=== PATIENT | female | born 1980 | race American Indian/Alaskan Native ===

== ENCOUNTER 2016-12-31 06:59 | Emergency (ER) | payer BC ==
[2016-12-31] MEDS ORDERED: DELTASONE PO ONE (09:15)
[2016-12-31] MEDS ORDERED: ULTRAM PO ONE (09:15)
--- NOTE | 2016-12-31 09:15 | Emergency Department Report ---
HPI - General Chief Complaint: Upper Respiratory Infection Time Seen by Provider: 12/31/16 08:57 - HPI HPI: Patient here complaining of feeling lightheaded and having a sinus headache with sinus pressure. She said this been going on for a week but it's getting worse. She says she uses [id number] sinus meds without any relief. She got a blood pressure is elevated at 156/111 and she said she does not have high blood pressure. She has been taking sinus medication with decongestion. She says she is unable to work this morning due to sinus headache. She says she gets frequent sinus infections. She is complaining of facial pain and pressure and pain to the front of her head at 7 out of 10. Denies any shortness of breath or chest pain. Denies any nausea vomiting. Pain feels like pressure.. Reports nasal congestion and stuffiness. Reports some coughing especially at night time. Denies any sore throat or earache. ED Past Medical Hx - Past Medical History Previous Medical History?: Yes Hx GERD: Yes Additional medical history: acid reflux - Surgical History Past Surgical History?: No - Family History Family history: hypertension - Social History Smoking Status: Never Smoker Substance Use Type: Non Opiate Pain, Other - Medications Home Medications: Home Medications Medication Instructions Recorded Confirmed Last Taken Type Famotidine [Pepcid] 10 mg PO BID #20 tablet 05/29/13 Unknown Rx Omeprazole Magnesium [Prilosec Otc] 20 mg PO QDAY #30 tablet. 05/29/13 Unknown Rx Lactulose [Cephulac] 20 gm PO Q6HR #360 ml 02/27/14 Unknown Rx Amoxicillin/K Clav Tab [Augmentin 1 tab PO Q12HR #14 tab 12/31/16 Unknown Rx 875 mg] Cetirizine HCl [ZyrTEC] 10 mg PO QDAY #14 capsule 12/31/16 Unknown Rx Fluticasone [Flonase] 1 spray NS QDAY #1 bottle 12/31/16 Unknown Rx predniSONE [Deltasone] 50 mg PO QAM #3 tab 12/31/16 Unknown Rx traMADol [Ultram 50 MG tab] 50 mg PO Q6H PRN #20 tablet 12/31/16 Unknown Rx ED Review of Systems ROS: Stated complaint: LIGHTHEADED Other details as noted in HPI Comment: All other systems reviewed and negative Constitutional: denies: chills, fever Eyes: denies: eye pain, vision change ENT: congestion. denies: throat pain Respiratory: cough. denies: shortness of breath, SOB with exertion, SOB at rest , stridor, wheezing Cardiovascular: denies: chest pain, palpitations, edema, syncope Gastrointestinal: denies: abdominal pain, nausea, vomiting Musculoskeletal: denies: back pain, arthralgia, myalgia Skin: denies: rash Neurological: headache. denies: weakness, numbness, paresthesias, confusion, abnormal gait, vertigo Physical Exam - Physical Exam Vital Signs: Vital Signs 12/31/16 07:20 Temperature 97.8 F Pulse Rate 97 H Respiratory 18 Rate Blood Pressure 156/111 O2 Sat by Pulse 100 Oximetry Vital Signs 12/31/16 12/31/16 12/31/16 07:20 09:40 10:30 Temperature 97.8 F Pulse Rate 97 H 76 Respiratory 18 18 18 Rate Blood Pressure 156/111 Blood Pressure 145/85 [Left] O2 Sat by Pulse 100 100 Oximetry General: This is a 46-year-old female well-nourished well-developed in no acute distress. Physical Exam: Head: Normocephalic atraumatic Mouth: Moist, no pharyngeal exudate or erythema. Uvula is midline and oral airway is patent. No gingival enlargement or dental tenderness. No facial swelling. No peritonsillar abscesses. Neck: Supple, no C-spine tenderness, no tracheal deviation. Nontender to palpate. no adenopathy Ears: Bilateral TMs congested without erythema .bilateral EAC without any redness swelling or drainage Eyes: Bilateral pupils equal and reactive to light, bilateral EOM intact. Bilateral sclera and conjunctiva without injection. Normal accommodation Nose: Mucosa moist, positive congestion with erythema. Positive clear drainage. maxillary and frontal sinus tender to palpate. Lungs: Clear to auscultate bilaterally no rhonchi wheezes or rales. Normal work of breathing extremity; No CCE. +2 pulses. No neurovascular compromise Cardiovascular: S1-S2, regular rate rhythm. No murmurs. Skin: clean Dry and intact no rash no lesions Psych: Normal mood and behavior ED Course Vital Signs 12/31/16 07:20 Temperature 97.8 F Pulse Rate 97 H Respiratory 18 Rate Blood Pressure 156/111 O2 Sat by Pulse 100 Oximetry Vital Signs 12/31/16 12/31/16 12/31/16 07:20 09:40 10:30 Temperature 97.8 F Pulse Rate 97 H 76 Respiratory 18 18 18 Rate Blood Pressure 156/111 Blood Pressure 145/85 [Left] O2 Sat by Pulse 100 100 Oximetry - Reevaluation(s) Reevaluation #1: 12/31/16 10:35 patient given Ultram and Deltasone in emergency room which she reports helped her pain. Blood pressure is now down to 145/85. ED Medical Decision Making - Medical Decision Making ED course: Patient with diagnosis of acute headache non-intractable, acute sinusitis.elevated blood pressure without history of hypertension .patient given Ultram and Deltasone in emergency room which she reports helped her pain. Blood pressure is now down to 145/85. I instructed patient to take her blood pressure every day and she does have a primary care physician so I told her she needs to schedule appointment with her primary care and take blood pressure along with her. Patient voiced understanding of discharge diagnosis and treatment plan and discharged home in stable condition. Patient given prescription for Augmentin, Flonase, Zyrtec, prednisone and Ultram. Discharged home in stable condition. Critical care attestation.: If time is entered above; I have spent that time in minutes in the direct care of this critically ill patient, excluding procedure time. ED Disposition Clinical Impression: Bacterial sinusitis, Elevated blood pressure reading in office with diagnosis of hypertension Acute headache Qualifiers: Headache type: unspecified Intractability: not intractable Qualified Code(s): R51 - Headache Disposition: DISCHARGED TO HOME OR SELFCARE Is pt being admited?: No Does the pt Need Aspirin: No Condition: Stable Instructions: Sinusitis (ED), Acute Headache (ED), Hypertension (ED) Additional Instructions: Please increase fluid intake Use saline nasal wash to flush nostrils and this will help to relieve congestion. Take medication as prescribed do not drive or operate heavy machinery while taking Ultram. Remember to keep a log of your Blood pressure and bring to PCP visit for evaluation. I did not take any medication that Decongestion and elevated blood pressure Prescriptions: Amoxicillin/K Clav Tab [Augmentin 875 mg] 1 tab PO Q12HR #14 tab Cetirizine HCl [ZyrTEC] 10 mg PO QDAY #14 capsule Fluticasone [Flonase] 1 spray NS QDAY #1 bottle predniSONE [Deltasone] 50 mg PO QAM #3 tab traMADol [Ultram 50 MG tab] 50 mg PO Q6H PRN #20 tablet PRN Reason: Headache Referrals: PRIMARY CARE,MD [Primary Care Provider] - 3-5 Days Forms: Work/School Release Form(ED)
[2016-12-31 11:08] VITALS: BP 137/85
== END 2016-12-31 11:10 | disposition home or self-care (01) ==
LOC: ED 06:59
DX: J32.8 Other chronic sinusitis (principal); K21.9 Gastro-esophageal reflux disease without esophagitis; Z88.1 Allergy status to other antibiotic agents
CPT/HCPCS: 99282; J7512

== ENCOUNTER 2017-03-02 15:41 | Emergency (ER) | payer BC ==
[2017-03-02 16:46] VITALS: BP 156/100
[2017-03-02] MEDS ORDERED: PEPCID PO ONE (18:08)
[2017-03-02] MEDS ORDERED: BENADRYL PO ONE (18:08)
[2017-03-02] MEDS ORDERED: DECADRON IM ONE (18:08)
--- NOTE | 2017-03-02 19:44 | Emergency Department Report ---
Entered by SUSAN WRIGHT, acting as scribe for DIANE RIOS PA. ED Rash HPI - HPI Chief Complaint: Skin Rash Stated Complaint: POSS ALLERGIC REACTION/RASH ON HANDS Time Seen by Provider: 03/02/17 17:57 Duration: Today Location: Other (bilateral dorsal surface of hands) Suspected Cause: Unknown (possbility gloves ) Rash Symptoms: Yes Itching, No Facial Swelling, No Tongue/Oral Swelling, No Breathing Difficulties, No Choking Sensation, No Wheezing/Dyspnea, No Peeling, No Blistering, No Fever, No Lightheaded, No Malaise, No Myalgias Severity: moderate Other History: 36 year old female with PMH of GERD and HTN presents to the ED with c/o skin rash from gloves here in hospital. Patient states that she works at [employer] and everytime she wear hospital gloves her hands begin to itch and develop rash. Patient reports itchy and hives breakout on both of her hands. Patient denies SOB, chest pain, , numbness or tingling. Patient also denies changes in diet and soaps for this reaction to occur. She used Triamcinolone with minimal relief. ED Review of Systems ROS: Stated complaint: POSS ALLERGIC REACTION/RASH ON HANDS Other details as noted in HPI Comment: All other systems reviewed and negative Constitutional: denies: chills, fever Eyes: denies: eye pain, eye discharge, vision change ENT: denies: ear pain, throat pain Respiratory: denies: cough, shortness of breath, wheezing Cardiovascular: denies: chest pain, palpitations Endocrine: denies: excessive sweating Gastrointestinal: denies: abdominal pain, nausea, vomiting, diarrhea Genitourinary: denies: urgency, dysuria, discharge Musculoskeletal: denies: back pain, joint swelling, arthralgia Skin: rash (hives on both hands), pruritus (bilateral hands) Neurological: denies: headache, weakness, numbness, paresthesias Psychiatric: denies: anxiety, depression Hematological/Lymphatic: denies: easy bleeding ED Past Medical Hx - Past Medical History Previous Medical History?: Yes Hx Hypertension: Yes Hx GERD: Yes Additional medical history: acid reflux - Surgical History Past Surgical History?: No - Social History Smoking Status: Never Smoker Substance Use Type: None - Medications Home Medications: Home Medications Medication Instructions Recorded Confirmed Last Taken Type Famotidine [Pepcid] 10 mg PO BID #20 tablet 05/29/13 Unknown Rx Omeprazole Magnesium [Prilosec Otc] 20 mg PO QDAY #30 tablet. 05/29/13 Unknown Rx Lactulose [Cephulac] 20 gm PO Q6HR #360 ml 02/27/14 Unknown Rx Amoxicillin/K Clav Tab [Augmentin 1 tab PO Q12HR #14 tab 12/31/16 Unknown Rx 875 mg] Cetirizine HCl [ZyrTEC] 10 mg PO QDAY #14 capsule 12/31/16 Unknown Rx Fluticasone [Flonase] 1 spray NS QDAY #1 bottle 12/31/16 Unknown Rx predniSONE [Deltasone] 50 mg PO QAM #3 tab 12/31/16 Unknown Rx traMADol [Ultram 50 MG tab] 50 mg PO Q6H PRN #20 tablet 12/31/16 Unknown Rx Hydrocortisone 1% [Hydrocortisone 1 applicatio TP BID #1 tube 03/02/17 Unknown Rx 1% CREAM] Rash Exam - Exam General: Vital signs noted. No distress. Alert and acting appropriately. HEENT: No Periorbital Edema, No Conjuctival Injection, No Chemosis, No Perioral Edema, No Tongue Edema, No Uvular Edema, No Compromised Airway, No Drooling Lungs: Yes Good Air Exchange, No Wheezes, No Ronchi, No Stridor, No Cough, No Labored Respirations, No Retractions, No Use of Accessory Muscles, No Other Abnormal Lung Sounds Heart: Yes Regular, No Murmur Skin: Yes Urticarial Rash (bilateral dorsal surface of hands), No Weeping, No Tenderness Other: Positive: Abdomen Normal, Neurologic Normal, Musculoskeletal Normal ED Course Vital Signs 03/02/17 16:43 Temperature 97.9 F Pulse Rate 88 Respiratory 16 Rate Blood Pressure 156/100 O2 Sat by Pulse 100 Oximetry ED Medical Decision Making - Medical Decision Making 36 year old female presents to ED with bilateral hand pruritis and rash consistent with contact dermatitis. patient has been given IM steroids and benadryl and states she feels better. patient is stable, neurologically intact and in no acute distress. Critical care attestation.: If time is entered above; I have spent that time in minutes in the direct care of this critically ill patient, excluding procedure time. ED Disposition Clinical Impression: Contact dermatitis Qualifiers: Contact dermatitis type: allergic Contact dermatitis trigger: unspecified trigger Qualified Code(s): L23.9 - Allergic contact dermatitis, unspecified cause Disposition: - TO HOME OR SELFCARE Is pt being admited?: No Does the pt Need Aspirin: No Condition: Stable Instructions: Contact Dermatitis (ED) Prescriptions: Hydrocortisone 1% [Hydrocortisone 1% CREAM] 1 applicatio TP BID #1 tube Referrals: DWIGHT CARRILLO MD [Referring] - 3-5 Days PRIMARY CAREMD [Primary Care Provider] - 3-5 Days YENNIFER WIN MD [Referring] - 3-5 Days Forms: Work/School Release Form(ED) This documentation as recorded by the ADRIANA arteaga PEARL,accurately reflects the service I personally performed and the decisions made by GABRIEL sahni AHMAD R., PA.
== END 2017-03-02 19:23 | disposition home or self-care (01) ==
LOC: ED 15:41
DX: L23.9 Allergic contact dermatitis, unspecified cause (principal); I10 Essential (primary) hypertension; K21.9 Gastro-esophageal reflux disease without esophagitis; Z88.1 Allergy status to other antibiotic agents
CPT/HCPCS: 81025; 96372; 99283; J1100

== ENCOUNTER 2017-03-11 18:51 | Emergency (ER) | payer BC | END 2017-03-11 19:54 | disposition left against medical advice (07) | LOC: ED 18:51 | DX: T78.40XA Allergy, unspecified, initial encounter (principal); Z88.1 Allergy status to other antibiotic agents; Z53.21 Procedure and treatment not carried out due to patient leaving prior to being seen by health care provider ==